=== PATIENT | female | born 1960 | race Caucasian/White ===

== ENCOUNTER 2017-06-27 08:11 | Emergency (ER) | payer BC, OTHER ==
[2017-06-27 08:25] VITALS: BP 131/86
[2017-06-27] MEDS ORDERED: Sodium Chloride 0.9% 10 ML Syringe FLUSH PRN (08:29)
[2017-06-27] MEDS ORDERED: Albuterol/Ipratropium 3.0-0.5 MG/3 ML Neb Soln NEB ONE (09:02)
[2017-06-27 09:04] LABS: CHLORIDE,CL 103 mmol/L (101-111); SODIUM,NA 138 mmol/L (135-145)
--- NOTE | 2017-06-27 09:06 | EDM.PDOC ---
ED HPI GENERAL MEDICAL PROBLEM - General Chief Complaint: Respiratory Problem Stated Complaint: CAN'T BREATH Time Seen by Provider: 06/27/17 09:03 Source of Information: Reports: Patient, RN, RN Notes Reviewed History Limitations: Reports: No Limitations - History of Present Illness INITIAL COMMENTS - FREE TEXT/NARRATIVE: Patient presents to the ER with c/o trouble breathing. She states she began getting sick on Tuesday, went to the clinic on Tuesday. She was told her lungs did not sound good and was placed on medications. She states she has progressively gotten worse. She denies fever or chills, nausea or vomiting. She denies sputum production. She admits to SOB and minimal sternal chest pain. 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 Cardiovascular History: Reports: None Respiratory History: Reports: COPD Gastrointestinal History: Reports: GERD Genitourinary History: Reports: None 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 Musculoskeletal History: Reports: Amputation, Back Pain, Chronic, Osteoarthritis Other Musculoskeletal History: shermans disease Neurological History: Reports: None Psychiatric History: Reports: Other (See Below) Other Psychiatric History: problem sleeping at times due to the pain Endocrine/Metabolic History: Reports: None Hematologic History: Reports: None Immunologic History: Reports: None Oncologic (Cancer) History: Reports: None Dermatologic History: Reports: None - Infectious Disease History Infectious Disease History: Reports: Chicken Pox - Past Surgical History Head Surgeries/Procedures: Reports: None Other Neurological Surgeries/Procedures: shermans disease Social & Family History - Family History Cardiac: Reports: Hypertension Respiratory: Reports: Asthma, COPD Musculoskeletal: Reports: Arthritis Psychiatric: Reports: Anxiety - Tobacco Use Smoking Status *Q: Current Every Day Smoker Years of Tobacco use: 38 Packs/Tins Daily: 1 Used Tobacco, but Quit: No Second Hand Smoke Exposure: Yes - Caffeine Use Caffeine Use: Reports: Coffee, Soda - Recreational Drug Use Recreational Drug Use: No - Living Situation & Occupation Living situation: Reports: , with Family Occupation: Employed ED ROS GENERAL - Review of Systems Review Of Systems: ROS reveals no pertinent complaints other than HPI. ED EXAM, GENERAL - Physical Exam Exam: See Below Exam Limited By: No Limitations General Appearance: Alert, WD/WN Eye Exam: Bilateral Eye: Normal Inspection Ears: Normal External Exam, Normal Canal, Hearing Grossly Normal Nose: Normal Inspection, Normal Mucosa, No Blood Throat/Mouth: Normal Inspection, Normal Lips, Normal Teeth, Normal Gums, Normal Oropharynx (mildly erythematous), Normal Voice, No Airway Compromise Head: Atraumatic, Normocephalic Neck: Normal Inspection, Supple, Non-Tender, Full Range of Motion Respiratory/Chest: Respiratory Distress, Crackles, Rhonchi, Wheezing Cardiovascular: Normal Peripheral Pulses, Regular Rate, Rhythm, No Edema, No Gallop, No JVD, No Murmur, No Rub Peripheral Pulses: 2+: Radial (L), Radial (R) GI/Abdominal: Normal Bowel Sounds, Soft, Non-Tender (Female) Exam: Deferred Rectal (Female) Exam: Deferred Back Exam: Normal Inspection, Full Range of Motion Extremities: Normal Inspection, Normal Range of Motion, Non-Tender, No Pedal Edema, Normal Capillary Refill Neurological: Alert, Oriented, Normal Cognition, Normal Gait, No Motor/Sensory Deficits Psychiatric: Normal Affect, Normal Mood Skin Exam: Warm, Dry, Intact, Normal Color, No Rash Lymphatic: No Adenopathy Course - Vital Signs Last Recorded V/S: Last Vital Signs Temp 97.4 F 06/27/17 08:23 Pulse 78 06/27/17 09:15 Resp 24 H 06/27/17 08:23 BP 131/86 06/27/17 08:23 Pulse Ox 98 06/27/17 08:23 - Orders/Labs/Meds Orders: Active Orders 24 hr Category Date Time Status Peripheral IV Care [RC] . DIRECTED Care 06/27/17 08:30 Active RT Aerosol Therapy [RC] ASDIRECTED Care 06/27/17 09:02 Active Sodium Chloride 0.9% [Saline Flush] Med 06/27/17 08:29 Active 10 ml FLUSH ASDIRECTED PRN Peripheral IV Insertion Adult [OM.PC] Stat Oth 06/27/17 08:30 Ordered Medication Orders Sodium Chloride (Saline Flush) 10 ml FLUSH ASDIRECTED PRN PRN Reason: Keep Vein Open Last Admin: 06/27/17 08:58 Dose: 10 ml Labs: Laboratory Tests 06/27/17 06/27/17 Range/Units 08:19 08:19 WBC 8.8 (5.0-10.0) 10^3/uL RBC 4.67 (4.2-5.4) 10^6/uL Hgb 13.5 (12.0-16.0) g/dL Hct 42.4 (37.0-47.0) % MCV 90.8 (80-100) fL MCH 28.9 (27.0-34.0) pg MCHC 31.8 L (33.0-35.0) g/dL Plt Count 244 (150-450) 10^3/uL Neut % (Auto) 63.0 (42.2-75.2) % Lymph % (Auto) 30.4 (20.5-50.1) % Bledsoe % (Auto) 6.4 (2-8) % Eos % (Auto) 0.2 L (1.0-3.0) % Baso % (Auto) 0.0 (0.0-1.0) % Sodium 138 (135-145) mmol/L Potassium 3.6 (3.6-5.0) mmol/L Chloride 103 (101-111) mmol/L Carbon Dioxide 24.0 (21.0-31.0) mmol/L Anion Gap 14.6 BUN 17 (7-18) mg/dL Creatinine 0.7 (0.6-1.3) mg/dL Est Cr Clr Drug Dosing TNP Estimated GFR (MDRD) > 60 BUN/Creatinine Ratio 24.28 Glucose 171 H (74-105) mg/dL Calcium 9.3 (8.4-10.2) mg/dl Total Bilirubin 0.3 (0.2-1.0) mg/dL AST 27 (10-42) IU/L ALT 12 (10-60) IU/L Alkaline Phosphatase 76 (42-121) IU/L Total Protein 7.6 (6.7-8.2) g/dl Albumin 3.8 (3.2-5.5) g/dl Globulin 3.8 Albumin/Globulin Ratio 1.00 Meds: Medications Generic Name Dose Route Start Last Admin Trade Name Freq PRN Reason Stop Dose Admin Sodium Chloride 10 ml 06/27/17 08:29 06/27/17 08:58 Saline Flush FLUSH 10 ml ASDIRECTED PRN Administration Keep Vein Open Discontinued Medications Generic Name Dose Route Start Last Admin Trade Name Franck PRN Reason Stop Dose Admin Albuterol/Ipratropium 3 ml 06/27/17 09:02 06/27/17 09:14 Duoneb 3.0-0.5 Mg/3 Ml NEB 06/27/17 09:03 3 ml ONETIME ONE Administration Methylprednisolone Sodium Succinate 125 mg 06/27/17 09:27 06/27/17 09:38 Solu-Medrol IM 06/27/17 09:28 Not Given ONETIME ONE Methylprednisolone Sodium Succinate 125 mg 06/27/17 09:34 06/27/17 09:38 Solu-Medrol IVPUSH 06/27/17 09:35 125 mg ONETIME ONE Administration Departure - Departure Time of Disposition: 09:45 Disposition: Home, Self-Care 01 Condition: Fair Clinical Impression: COPD exacerbation - Discharge Information Instructions: Shortness of Breath, [id number], Smoking Cessation, Tips for Success, [id number], Upper Respiratory Infection, Adult, [id number], Chronic Obstructive Pulmonary Disease Exacerbation, [id number] Forms: ED Department Discharge Additional Instructions: Please establish a Primary care provider. Make an appointment to be seen at your clinic this week to have Prednisone tapered down. Continue taking Doxycycline previously prescribed. Continue using Chely inhaler. Stop using the inhaler given to you by a relative. Prednisone 60mg orally once daily for 5 days. It is very important that you take this as directed and do not abruptly stop taking. This again is why it is so important that you make an appointment and establish a primary care provider. Albuterol 0.83% nebulizers every 4 hours until better, then every 4 hours as needed for cough, sob. - My Orders Last 24 Hours: My Active Orders 06/27/17 08:29 Sodium Chloride 0.9% [Saline Flush] 10 ml FLUSH ASDIRECTED PRN 06/27/17 08:30 Peripheral IV Care [RC] . DIRECTED Peripheral IV Insertion Adult [OM.PC] Stat 06/27/17 09:02 RT Aerosol Therapy [RC] ASDIRECTED - Assessment/Plan Last 24 Hours: My Active Orders 06/27/17 08:29 Sodium Chloride 0.9% [Saline Flush] 10 ml FLUSH ASDIRECTED PRN 06/27/17 08:30 Peripheral IV Care [RC] . DIRECTED Peripheral IV Insertion Adult [OM.PC] Stat 06/27/17 09:02 RT Aerosol Therapy [RC] ASDIRECTED
--- NOTE | 2017-06-27 09:18 | CR ---
Clinical history: 57-year-old female cough. Interpretation: Negative exam. Normal cardiac silhouette and bony thorax. No alveolar edema or dependent effusion. No lung mass, hilar lymphadenopathy or focal lobar pneumonia. No atelectasis/collapse. No pneumothorax.
[2017-06-27] MEDS ORDERED: methylPREDNISolone Sodium Succinate 125 MG/2 ML SDV IM ONE (09:27)
[2017-06-27] MEDS ORDERED: methylPREDNISolone Sodium Succinate 125 MG/2 ML SDV IVPUSH ONE (09:34)
== END 2017-06-27 09:58 | disposition home or self-care (01) ==
LOC: DL.ED 08:11
DX: J44.1 Chronic obstructive pulmonary disease with (acute) exacerbation (principal); K21.9 Gastro-esophageal reflux disease without esophagitis; M19.90 Unspecified osteoarthritis, unspecified site; F17.210 Nicotine dependence, cigarettes, uncomplicated; Z88.6 Allergy status to analgesic agent; Z79.899 Other long term (current) drug therapy
CPT/HCPCS: 36415; 71020; 80053; 85025; 94640; 96374; 99285; J2930; J7050

== ENCOUNTER 2018-03-26 20:28 | Emergency (ER) | payer OTHER ==
[2018-03-26 20:40] VITALS: BP 141/93
--- NOTE | 2018-03-26 22:09 | EDM.PDOC ---
ED HPI GENERAL MEDICAL PROBLEM - General Chief Complaint: Upper Extremity Injury/Pain Stated Complaint: BROKE ELBOW? [id number] Time Seen by Provider: 03/26/18 20:50 Source of Information: Reports: Patient, RN, RN Notes Reviewed History Limitations: Reports: No Limitations - History of Present Illness INITIAL COMMENTS - FREE TEXT/NARRATIVE: Pt to ER with c/o right elbow/arm pain. She states she slipped and fell on and landed on the right elbow. She states it "zings" up and down the arm. She states she has been having trouble with this arm and has been seeing chiropractic. Patient presents with the right arm in a sling. 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 Cardiovascular History: Reports: None Respiratory History: Reports: COPD Gastrointestinal History: Reports: GERD Genitourinary History: Reports: None 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 Musculoskeletal History: Reports: Amputation, Back Pain, Chronic, Osteoarthritis Other Musculoskeletal History: shermans disease Neurological History: Reports: None Psychiatric History: Reports: Other (See Below) Other Psychiatric History: problem sleeping at times due to the pain Endocrine/Metabolic History: Reports: None Hematologic History: Reports: None Immunologic History: Reports: None Oncologic (Cancer) History: Reports: None Dermatologic History: Reports: None - Infectious Disease History Infectious Disease History: Reports: Chicken Pox - Past Surgical History Head Surgeries/Procedures: Reports: None Other Neurological Surgeries/Procedures: shermans disease Social & Family History - Family History Cardiac: Reports: Hypertension Respiratory: Reports: Asthma, COPD Musculoskeletal: Reports: Arthritis Psychiatric: Reports: Anxiety - Tobacco Use Smoking Status *Q: Former Smoker Used Tobacco, but Quit: Yes Month/Year Tobacco Last Used: 11/2017 - Caffeine Use Caffeine Use: Reports: Coffee, Soda - Recreational Drug Use Recreational Drug Use: No - Living Situation & Occupation Living situation: Reports: , with Family Occupation: Employed Review of Systems - Review of Systems Review Of Systems: ROS reveals no pertinent complaints other than HPI. ED EXAM, GENERAL - Physical Exam Exam: See Below Exam Limited By: No Limitations General Appearance: Alert, WD/WN, No Apparent Distress Eye Exam: Bilateral Eye: EOMI, Normal Inspection Ears: Normal External Exam, Hearing Grossly Normal Nose: Normal Inspection Throat/Mouth: Normal Inspection, Normal Voice, No Airway Compromise Head: Atraumatic, Normocephalic Neck: Normal Inspection, Supple, Non-Tender, Full Range of Motion Respiratory/Chest: No Respiratory Distress, Lungs Clear, Chest Non-Tender, Decreased Breath Sounds Cardiovascular: Normal Peripheral Pulses, Regular Rate, Rhythm, No Edema, No Gallop, No JVD, No Murmur, No Rub Peripheral Pulses: 2+: Radial (L), Radial (R) GI/Abdominal: Normal Bowel Sounds, Soft, Non-Tender (Female) Exam: Deferred Rectal (Female) Exam: Deferred Back Exam: Normal Inspection, Full Range of Motion Extremities: Arm Pain (right arm/elbow), Limited Range of Motion (right arm) Neurological: Alert, Oriented, Normal Cognition, Normal Gait, No Motor/Sensory Deficits Psychiatric: Normal Affect, Normal Mood Skin Exam: Warm, Dry, Intact, Normal Color, No Rash, Ecchymosis (just proximal to the elbow on the dorsal aspect) Lymphatic: No Adenopathy Course - Vital Signs Last Recorded V/S: Last Vital Signs Temp 98.5 F 03/26/18 20:39 Pulse 103 H 03/26/18 20:39 Resp 16 03/26/18 20:39 BP 141/93 H 03/26/18 20:39 Pulse Ox 95 03/26/18 20:39 - Radiology Interpretation Free Text/Narrative:: Right elbow xray: IMPRESSION: No acute osseous findings. Thank you for allowing us to participate in the care of your patient. Dictated and Authenticated by: Al Muhammad MD 03/26/2018 10:02 PM Central Time ([place] & [place]) See Rad report Departure - Departure Time of Disposition: 22:07 Disposition: Home, Self-Care 01 Condition: Fair Clinical Impression: Left elbow contusion Qualifiers: Encounter type: initial encounter Qualified Code(s): S50.02XA - Contusion of left elbow, initial encounter - Discharge Information Instructions: How to Use a Sling, [id number], Elbow Contusion, [id number] Referrals: PCP,None [Primary Care Provider] - Forms: ED Department Discharge Additional Instructions: May use Tylenol and/or ibuprofen as directed for pain Use sling for comfort Follow up with your primary care facility
== END 2018-03-26 22:18 | disposition home or self-care (01) ==
LOC: DL.ED 20:28
DX: S50.02XA Contusion of left elbow, initial encounter (principal); J44.9 Chronic obstructive pulmonary disease, unspecified; Z88.8 Allergy status to other drugs, medicaments and biological substances; Z79.899 Other long term (current) drug therapy; Z87.891 Personal history of nicotine dependence; W01.0XXA Fall on same level from slipping, tripping and stumbling without subsequent striking against object, initial encounter
CPT/HCPCS: 73080-RT; 99283

== ENCOUNTER → 2019-02-22 | Outpatient (CLI) | payer OTHER ==
[2019-02-22 18:48] LABS: SODIUM,NA 140 mmol/L (135-145)
[2019-02-22 18:49] LABS: ANION GAP 19.5; CHLORIDE,CL 103 mmol/L (101-111)
== END ==
LOC: DL.CT 17:04
PROVIDERS: ATTEND Nurse Practitioner
DX: R06.02 Shortness of breath (principal)
CPT/HCPCS: 36415; 80048; 85379

== ENCOUNTER 2019-02-23 09:40 | Inpatient (IN) | payer OTHER ==
[2019-02-23] MEDS ORDERED: Sodium Chloride 0.9% 10 ML Syringe FLUSH PRN ×2 (09:44→15:55)
[2019-02-23] MEDS ORDERED: Budesonide 0.5 MG/2 ML Neb Susp NEB ONE (09:45)
[2019-02-23] MEDS ORDERED: Albuterol/Ipratropium 3.0-0.5 MG/3 ML Neb Soln NEB ONE (09:45)
[2019-02-23] MEDS ORDERED: methylPREDNISolone Sodium Succinate 125 MG/2 ML SDV IVPUSH ONE (09:45)
--- NOTE | 2019-02-23 09:46 | EDM.PDOC ---
ED HPI GENERAL MEDICAL PROBLEM - General Stated Complaint: UNKNOWN Time Seen by Provider: 02/23/19 09:40 Source of Information: Reports: Patient History Limitations: Reports: No Limitations - History of Present Illness INITIAL COMMENTS - FREE TEXT/NARRATIVE: patient comes emergency department today from the clinic for concerns of continued respiratory distress. The patient over the past week has been struggling with an exacerbation of what sounds to be COPD. She is placed on prednisone inhalers as well as azithromycin. She finished the Zithromax on the fourth of this month. Today she went to the clinic because she is in extreme respiratory distress. She cannot sleep and she is gasping for air. She has tightness in her chest but no overt chest pain. She has been diaphoretic but no fevers. Nauseated but no vomiting. No abdominal pain. No diarrhea. No history of DVTs. She was a smoker in the past but has not for many years. She has had no recent long extensive travel. Her sedentary lifestyle. Recent surgery. HIstory taking is somewhat limited due to the severe nature of her respiratory distress. - Related Data Allergies Allergy/AdvReac Type Severity Reaction Status Date / Time aspirin Allergy Stomach Verified 02/23/19 09:47 Upset Home Meds: Home Meds DULoxetine [Cymbalta] 60 mg PO DAILY 04/19/15 [History] Pantoprazole [Protonix] 40 mg PO DAILY 04/19/15 [History] traZODone 50 mg PO ASDIRECTED PRN 10/03/15 [History] Gabapentin [Neurontin] 1 tab PO DAILY 06/27/17 [History] Albuterol Sulfate [Albuterol Sulfate Hfa] 2 puff INH ASDIRECTED PRN 02/23/19 [ History] Esomeprazole Magnesium 20 mg PO DAILY 02/23/19 [History] Ipratropium/Albuterol Sulfate [Iprat-Albut 0.5-3(2.5) MG/3 ML] 1 ampule INH ASDIRECTED PRN 02/23/19 [History] Past Medical History HEENT History: Reports: Impaired Vision Other HEENT History: wears glasses 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 Cardiovascular History: Reports: None Respiratory History: Reports: COPD Gastrointestinal History: Reports: GERD Genitourinary History: Reports: None 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 Musculoskeletal History: Reports: Amputation, Back Pain, Chronic, Osteoarthritis Other Musculoskeletal History: shermans disease Neurological History: Reports: None Psychiatric History: Reports: Other (See Below) Other Psychiatric History: problem sleeping at times due to the pain Endocrine/Metabolic History: Reports: None Hematologic History: Reports: None Immunologic History: Reports: None Oncologic (Cancer) History: Reports: None Dermatologic History: Reports: None - Infectious Disease History Infectious Disease History: Reports: Chicken Pox - Past Surgical History Head Surgeries/Procedures: Reports: None Other Neurological Surgeries/Procedures: shermans disease Social & Family History - Family History Cardiac: Reports: Hypertension Respiratory: Reports: Asthma, COPD Musculoskeletal: Reports: Arthritis Psychiatric: Reports: Anxiety - Caffeine Use Caffeine Use: Reports: Coffee, Soda - Living Situation & Occupation Living situation: Reports: , with Family Occupation: Employed ED ROS GENERAL - Review of Systems Review Of Systems: ROS reveals no pertinent complaints other than HPI. ED EXAM, GENERAL - Physical Exam Exam: See Below Free Text/Narrative:: moderate to severe respiratory distress. Gasping for air. She is alert and appropriate. She is only able to speak in 1-2 word sentences. She is diaphoretic. She is ambulatory. Exam Limited By: Respiratory Distress General Appearance: Anxious, Moderate Distress Eye Exam: Bilateral Eye: EOMI Ears: Normal External Exam Nose: Normal Inspection, Normal Mucosa, No Blood Throat/Mouth: Normal Inspection, Normal Lips, Normal Oropharynx, No Airway Compromise Head: Atraumatic, Normocephalic Neck: Normal Inspection, Supple, Non-Tender Respiratory/Chest: Chest Non-Tender, Respiratory Distress (as stated above. ), Decreased Breath Sounds, Wheezing, Accessory Muscle Use. No: Stridor, Retractions Cardiovascular: Normal Peripheral Pulses, Regular Rate, Rhythm, Tachycardia Peripheral Pulses: 2+: Radial (L), Radial (R), Posterior Tibial (L), Posterior Tibial (R), Dorsalis Pedis (L), Dorsalis Pedis (R) GI/Abdominal: Normal Bowel Sounds, Soft, Non-Tender Back Exam: Normal Inspection, Full Range of Motion Extremities: Normal Inspection, Normal Range of Motion, Non-Tender Neurological: Alert, Oriented, Normal Cognition, No Motor/Sensory Deficits Psychiatric: Anxious Skin Exam: Warm, Intact, Diaphoretic, Pallor Lymphatic: No Adenopathy EKG INTERPRETATION EKG Date: 02/23/19 Time: 10:05 Rhythm: NSR Rate (Beats/Min): 101 [place]: Normal P-Wave: Present QRS: Normal ST-T: Normal QT: Normal Course - Vital Signs Last Recorded V/S: Last Vital Signs Temp 35.9 C 02/23/19 09:46 Pulse 111 H 02/23/19 10:15 Resp 48 H 02/23/19 09:46 BP Pulse Ox 100 02/23/19 09:46 - Orders/Labs/Meds Orders: Active Orders 24 hr Category Date Time Status EKG 12 Lead [EKG Documentation Completion] [RC] URGENT Care 02/23/19 09:44 Active Peripheral IV Care [RC] . DIRECTED Care 02/23/19 09:45 Active RT Aerosol Therapy [RC] ASDIRECTED Care 02/23/19 09:45 Active RT Aerosol Therapy [RC] ASDIRECTED Care 02/23/19 10:15 Active RT BiPAP/CPAP [RC] ASDIRECTED Care 02/23/19 11:46 Active CULTURE BLOOD [BC] Stat Lab 02/23/19 11:07 Received CULTURE BLOOD [BC] Stat Lab 02/23/19 11:11 Received PROCALCITONIN [REF] Stat Lab 02/23/19 10:13 Received Sodium Chloride 0.9% [Saline Flush] Med 02/23/19 09:44 Active 10 ml FLUSH ASDIRECTED PRN Blood Culture x2 Reflex Set [OM.PC] Stat Oth 02/23/19 10:58 Ordered Peripheral IV Insertion Adult [OM.PC] Stat Oth 02/23/19 09:44 Ordered Medication Orders Sodium Chloride (Saline Flush) 10 ml FLUSH ASDIRECTED PRN PRN Reason: Keep Vein Open Last Admin: 02/23/19 09:42 Dose: 10 ml Labs: Laboratory Tests 02/23/19 02/23/19 02/23/19 Range/Units 10:13 10:13 10:13 WBC 14.3 H (5.0-10.0) 10^3/uL RBC 4.29 (4.2-5.4) 10^6/uL Hgb 12.1 (12.0-16.0) g/dL Hct 37.9 (37.0-47.0) % MCV 88.3 (80-100) fL MCH 28.2 (27.0-34.0) pg MCHC 31.9 L (33.0-35.0) g/dL Plt Count 293 (150-450) 10^3/uL Neut % (Auto) 77.5 H (42.2-75.2) % Lymph % (Auto) 16.9 L (20.5-50.1) % [place] % (Auto) 5.5 (2-8) % Eos % (Auto) 0.0 L (1.0-3.0) % Baso % (Auto) 0.1 (0.0-1.0) % Sodium 138 (135-145) mmol/L Potassium 3.7 (3.6-5.0) mmol/L Chloride 102 (101-111) mmol/L Carbon Dioxide 20.0 L (21.0-31.0) mmol/L Anion Gap 19.7 BUN 14 (7-18) mg/dL Creatinine 0.7 (0.6-1.3) mg/dL Est Cr Clr Drug Dosing 74.72 mL/min Estimated GFR (MDRD) > 60 BUN/Creatinine Ratio 20.00 Glucose 145 H (74-105) mg/dL Lactic Acid 4.4 H (0.5-2.2) mmol/L Calcium 9.0 (8.4-10.2) mg/dl Total Bilirubin 0.8 (0.2-1.0) mg/dL AST 43 H (10-42) IU/L ALT 23 (10-60) IU/L Alkaline Phosphatase 85 (42-121) IU/L Troponin I < 0.02 (0.00-0.02) ng/ml C-Reactive Protein (0.0-1.3) mg/dL Total Protein 7.3 (6.7-8.2) g/dl Albumin 3.9 (3.2-5.5) g/dl Globulin 3.4 Albumin/Globulin Ratio 1.15 /04/06 Range/Units 10:13 WBC (5.0-10.0) 10^3/uL RBC (4.2-5.4) 10^6/uL Hgb (12.0-16.0) g/dL Hct (37.0-47.0) % MCV (80-100) fL MCH (27.0-34.0) pg MCHC (33.0-35.0) g/dL Plt Count (150-450) 10^3/uL Neut % (Auto) (42.2-75.2) % Lymph % (Auto) (20.5-50.1) % [place] % (Auto) (2-8) % Eos % (Auto) (1.0-3.0) % Baso % (Auto) (0.0-1.0) % Sodium (135-145) mmol/L Potassium (3.6-5.0) mmol/L Chloride (101-111) mmol/L Carbon Dioxide (21.0-31.0) mmol/L Anion Gap BUN (7-18) mg/dL Creatinine (0.6-1.3) mg/dL Est Cr Clr Drug Dosing mL/min Estimated GFR (MDRD) BUN/Creatinine Ratio Glucose (74-105) mg/dL Lactic Acid (0.5-2.2) mmol/L Calcium (8.4-10.2) mg/dl Total Bilirubin (0.2-1.0) mg/dL AST (10-42) IU/L ALT (10-60) IU/L Alkaline Phosphatase (42-121) IU/L Troponin I (0.00-0.02) ng/ml C-Reactive Protein 0.6 (0.0-1.3) mg/dL Total Protein (6.7-8.2) g/dl Albumin (3.2-5.5) g/dl Globulin Albumin/Globulin Ratio Meds: Medications Generic Name Dose Route Start Last Admin Trade Name Freq PRN Reason Stop Dose Admin Sodium Chloride 10 ml 02/23/19 09:44 02/23/19 09:42 Saline Flush FLUSH 10 ml ASDIRECTED PRN Administration Keep Vein Open Discontinued Medications Generic Name Dose Route Start Last Admin Trade Name Freq PRN Reason Stop Dose Admin Albuterol 10 mg 02/23/19 10:14 Proventil Neb Soln [facility] 02/23/19 10:15 ONETIME ONE Albuterol/Ipratropium 3 ml 02/23/19 09:45 02/23/19 09:48 Duoneb 3.0-0.5 Mg/3 Ml [facility] 02/23/19 09:46 3 ml ONETIME ONE Administration Budesonide 1 mg 02/23/19 09:45 02/23/19 09:48 Pulmicort [facility] 02/23/19 09:46 1 mg ONETIME ONE Administration Ceftriaxone Sodium Confirm 02/23/19 10:52 02/23/19 11:07 Rocephin Administered 02/23/19 10:53 Not Given Dose 2 gm .ROUTE .STK-MED ONE Magnesium Sulfate/Dextrose 2 200 mls @ 100 mls/hr 02/23/19 09:52 02/23/19 10: 00 gm/ Premix IV 02/23/19 11:51 100 mls/hr ONETIME ONE Administration Azithromycin 500 mg/ Sodium 250 mls @ 250 mls/hr 02/23/19 10:46 02/23/19 11: 42 Chloride IV 02/23/19 11:45 250 mls/hr ONETIME ONE Administration Ceftriaxone Sodium 2 gm/ 100 mls @ 200 mls/hr 02/23/19 10:46 02/23/19 11:11 Sodium Chloride IV 02/23/19 11:15 200 mls/hr ONETIME ONE Administration Lactated Ringer's 1,000 mls @ 1,000 mls/hr 02/23/19 10:58 02/23/19 11:09 Ringers, Lactated IV 02/23/19 11:57 1,000 mls/hr .BOLUS ONE Administration Methylprednisolone Sodium Succinate 125 mg 02/23/19 09:45 02/23/19 09:47 Solu-Medrol IVPUSH 02/23/19 09:46 125 mg ONETIME ONE Administration Montelukast Sodium 10 mg 02/23/19 10:47 02/23/19 11:00 Singulair PO 02/23/19 10:48 10 mg ONETIME ONE Administration Morphine Sulfate 2 mg 02/23/19 10:06 02/23/19 10:24 Morphine IVPUSH 02/23/19 10:07 2 mg ONETIME ONE Administration Morphine Sulfate 2 mg 02/23/19 11:59 Morphine IVPUSH 02/23/19 12:00 ONETIME ONE Morphine Sulfate 4 mg 02/23/19 12:04 02/23/19 12:15 Morphine IVPUSH 02/23/19 12:05 4 mg ONETIME ONE Administration Morphine Sulfate Confirm 02/23/19 12:05 02/23/19 12:24 Morphine Administered 02/23/19 12:06 Not Given Dose 4 mg .ROUTE .STK-MED ONE - Radiology Interpretation Free Text/Narrative:: Per radiology IMPRESSION: No evidence for acute pulmonary disease. - Re-Assessments/Exams Free Text/Narrative Re-Assessment/Exam: 02/23/19 arrival initial managemrted with a DuoNeb nebulizer Budesonide 1 mg Solu-medrol 125mg Still very dyspneic and gasping. Oxygen saturation still high 90s. Continuous nebulizer. Morphine 2mg IVP Magnesium Sulfate 2grams IVPB 02/23/19 10:57 Pt is now resting on the cot. Still tachypneic but must less distress. She is calm. Skin pink warm and dry. Nebulizer still going. Gets very winded with even the lightest physical exertion or talking. Placed on Bipap see RT for titration settings. Morphine 4mg IVP for anxiety and comfort on the bipap. 02/23/19 the patient is tolerating the BiPAP very well. She reports that she feels much less short of breath. She does not feel short of breath at rest. Her tidal volumes are in the 500s respiratory rate in the low 20s. Although when she physically exerts herself she again becomes dyspneic. Her recurrent COPD exacerbation as well as the extreme nature of this upon presentation I spoke with Dr. Perez the hospitalist dynamics ax consultant here in [facility]. HPI ER COURSE findings and concerns were relayed to him. He accepted the patient in transfer as inpatient here for admission. Departure - Departure Time of Disposition: 12:40 Disposition: Admitted As Inpatient 65 Clinical Impression: Chronic obstructive pulmonary disease with acute exacerbation - Discharge Information Critical Care Note - Critical Care Note Total Time (mins): 45 (45 minutes of direct critical care for this severe COPD exaceration at the bedside for continuous monitoring interventions planning and care coordination. ) - My Orders Last 24 Hours: My Active Orders 02/23/19 09:44 EKG 12 Lead [EKG Documentation Completion] [RC] URGENT Sodium Chloride 0.9% [Saline Flush] 10 ml FLUSH ASDIRECTED PRN Peripheral IV Insertion Adult [OM.PC] Stat 02/23/19 09:45 Peripheral IV Care [RC] . DIRECTED RT Aerosol Therapy [RC] ASDIRECTED 02/23/19 10:13 PROCALCITONIN [REF] Stat 02/23/19 10:15 RT Aerosol Therapy [RC] ASDIRECTED 02/23/19 10:58 Blood Culture x2 Reflex Set [OM.PC] Stat 02/23/19 11:07 CULTURE BLOOD [BC] Stat 02/23/19 11:11 CULTURE BLOOD [BC] Stat 02/23/19 11:46 RT BiPAP/CPAP [RC] ASDIRECTED - Assessment/Plan Last 24 Hours: My Active Orders 02/23/19 09:44 EKG 12 Lead [EKG Documentation Completion] [RC] URGENT Sodium Chloride 0.9% [Saline Flush] 10 ml FLUSH ASDIRECTED PRN Peripheral IV Insertion Adult [OM.PC] Stat 02/23/19 09:45 Peripheral IV Care [RC] . DIRECTED RT Aerosol Therapy [RC] ASDIRECTED 02/23/19 10:13 PROCALCITONIN [REF] Stat 02/23/19 10:15 RT Aerosol Therapy [RC] ASDIRECTED 02/23/19 10:58 Blood Culture x2 Reflex Set [OM.PC] Stat 02/23/19 11:07 CULTURE BLOOD [BC] Stat 02/23/19 11:11 CULTURE BLOOD [BC] Stat 02/23/19 11:46 RT BiPAP/CPAP [RC] ASDIRECTED Assessment:: Severe COPD exacerbation Bipap ventilation Plan: Admit Dr. Perez were in [place] for inpatient.
[2019-02-23] MEDS ORDERED: Magnesium Sulfate/D5W 2 GM in Premix Bag 1 BAG IV ONE (09:52)
[2019-02-23] MEDS ORDERED: Morphine 2 MG/ML Syringe IVPUSH ONE ×2 (10:06→11:59)
[2019-02-23] MEDS ORDERED: Albuterol 0.083% 2.5 MG/3 ML Neb Soln NEB ONE (10:14)
[2019-02-23 10:39] LABS: ANION GAP 19.7; CHLORIDE,CL 102 mmol/L (101-111); SODIUM,NA 138 mmol/L (135-145)
[2019-02-23] MEDS ORDERED: cefTRIAXone 2 GM in Sodium Chloride 0.9% 100 ML IV ONE (10:46)
[2019-02-23] MEDS ORDERED: Azithromycin 500 MG in Sodium Chloride 0.9% 250 ML IV ONE (10:46)
[2019-02-23] MEDS ORDERED: Montelukast 10 MG Tab PO ONE (10:47)
[2019-02-23] MEDS ORDERED: cefTRIAXone 1 GM Vial ONE (10:52)
[2019-02-23] MEDS ORDERED: Lactated Ringers 1,000 ML IV ONE (10:58)
[2019-02-23] MEDS ORDERED: Morphine 4 MG/ML Syringe IVPUSH ONE (12:04)
[2019-02-23] MEDS ORDERED: Morphine 4 MG/ML Syringe ONE (12:05)
[2019-02-23 14:37] LABS: BASE EXCESS ARTERIAL -1 mmol/L ((-2)-(+3)); BICARBONATE,ARTERIAL 21.9 mmol/L (22-26); O2 DELIVERY DEVICE BIPAP; O2 SATURATION ARTERIAL 99 % (95-100); PCO2 ARTERIAL 32 mmHg (35-45); PO2 ARTERIAL 101 mmHg (70-100)
[2019-02-23 14:38] LABS: ALLEN TEST PERFORMED
[2019-02-23] MEDS ORDERED: Albuterol/Ipratropium 3.0-0.5 MG/3 ML Neb Soln NEB PRN (15:57)
--- NOTE | 2019-02-23 16:06 | PCM.HP ---
H&P History of Present Illness - General Date of Service: 02/23/19 Admit Problem/Dx: Admission Diagnosis/Problem Admission Diagnosis/Problem Chronic obstructive pulmonary disease Source of Information: Patient History Limitations: Reports: No Limitations - History of Present Illness Initial Comments - Free Text/Narative: 58 yo F with pmh of COPD, anxiety/depression, past smoker (quit 15 months ago) who presents with shortness of breath. Shortness of breath has been ongoing for the past four days. Used her inhaler at home without relief Cough, no sputum No fever No chest pain No abd pain, nausea or vomiting No leg swelling In the ED, BiPAP was started. - Related Data Allergies/Adverse Reactions: Allergies Allergy/AdvReac Type Severity Reaction Status Date / Time aspirin Allergy Stomach Verified 02/23/19 14:18 Upset Home Medications: Home Meds DULoxetine [Cymbalta] 60 mg PO DAILY 04/19/15 [History] traZODone 50 mg PO ASDIRECTED PRN 10/03/15 [History] Gabapentin [Neurontin] 100 mg PO DAILY 06/27/17 [History] Albuterol Sulfate [Albuterol Sulfate Hfa] 2 puff INH ASDIRECTED PRN 02/23/19 [ History] Esomeprazole Magnesium 20 mg PO DAILY 02/23/19 [History] Ipratropium/Albuterol Sulfate [Iprat-Albut 0.5-3(2.5) MG/3 ML] 1 ampule INH ASDIRECTED PRN 02/23/19 [History] Past Medical History HEENT History: Reports: Impaired Vision Other HEENT History: wears glasses 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 Cardiovascular History: Reports: None Respiratory History: Reports: COPD Gastrointestinal History: Reports: GERD Genitourinary History: Reports: None 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 Musculoskeletal History: Reports: Amputation, Back Pain, Chronic, Osteoarthritis Other Musculoskeletal History: shermans disease Neurological History: Reports: None Psychiatric History: Reports: Other (See Below) Other Psychiatric History: problem sleeping at times due to the pain Endocrine/Metabolic History: Reports: None Hematologic History: Reports: None Immunologic History: Reports: None Oncologic (Cancer) History: Reports: None Dermatologic History: Reports: None - Infectious Disease History Infectious Disease History: Reports: Chicken Pox - Past Surgical History Head Surgeries/Procedures: Reports: None Other Neurological Surgeries/Procedures: shermans disease Social & Family History - Family History Cardiac: Reports: Hypertension Respiratory: Reports: Asthma, COPD Musculoskeletal: Reports: Arthritis Psychiatric: Reports: Anxiety - Tobacco Use Smoking Status *Q: Former Smoker Used Tobacco, but Quit: Yes Month/Year Tobacco Last Used: 15 months - Caffeine Use Caffeine Use: Reports: Coffee, Soda - Living Situation & Occupation Living situation: Reports: , with Family Occupation: Employed H&P Review of Systems - Review of Systems: Review Of Systems: ROS reveals no pertinent complaints other than HPI. General: Denies: Fever HEENT: Reports: No Symptoms Pulmonary: Reports: Shortness of Breath Cardiovascular: Reports: No Symptoms Gastrointestinal: Reports: No Symptoms Genitourinary: Reports: No Symptoms Musculoskeletal: Reports: No Symptoms Skin: Reports: No Symptoms Neurological: Reports: No Symptoms Exam - Exam Exam: See Below - Vital Signs Vital Signs: Last Vital Signs Temp 36.8 C 02/23/19 13:45 Pulse 108 H 02/23/19 13:45 Resp 42 H 02/23/19 13:45 BP 163/107 H 02/23/19 13:45 Pulse Ox 98 02/23/19 13:45 Weight: 81.647 kg - Exam General: Alert, Oriented HEENT: Conjunctiva Clear Neck: Supple, Trachea Midline Lungs: Other (on BiPAP) Cardiovascular: Regular Rate, Regular Rhythm GI/Abdominal Exam: Normal Bowel Sounds, Soft Extremities: Normal Inspection, Normal Range of Motion - Patient Data Lab Results Last 24 hrs: Laboratory Results - last 24 hr 02/23/19 02/23/19 02/23/19 Range/Units 10:13 10:13 10:13 WBC 14.3 H (5.0-10.0) 10^3/uL RBC 4.29 (4.2-5.4) 10^6/uL Hgb 12.1 (12.0-16.0) g/dL Hct 37.9 (37.0-47.0) % MCV 88.3 (80-100) fL MCH 28.2 (27.0-34.0) pg MCHC 31.9 L (33.0-35.0) g/dL Plt Count 293 (150-450) 10^3/uL Neut % (Auto) 77.5 H (42.2-75.2) % Lymph % (Auto) 16.9 L (20.5-50.1) % [place] % (Auto) 5.5 (2-8) % Eos % (Auto) 0.0 L (1.0-3.0) % Baso % (Auto) 0.1 (0.0-1.0) % ABG pH (7.35-7.45) ABG pCO2 (35-45) mmHg ABG pO2 (70-100) mmHg ABG HCO3 (22-26) mmol/L ABG O2 Saturation (95-100) % ABG Base Excess ((-2)-(+3)) mmol/L Harjinder Test O2 Delivery Device Sodium 138 (135-145) mmol/L Potassium 3.7 (3.6-5.0) mmol/L Chloride 102 (101-111) mmol/L Carbon Dioxide 20.0 L (21.0-31.0) mmol/L Anion Gap 19.7 BUN 14 (7-18) mg/dL Creatinine 0.7 (0.6-1.3) mg/dL Est Cr Clr Drug Dosing 74.72 mL/min Estimated GFR (MDRD) > 60 BUN/Creatinine Ratio 20.00 Glucose 145 H (74-105) mg/dL Lactic Acid 4.4 H (0.5-2.2) mmol/L Calcium 9.0 (8.4-10.2) mg/dl Total Bilirubin 0.8 (0.2-1.0) mg/dL AST 43 H (10-42) IU/L ALT 23 (10-60) IU/L Alkaline Phosphatase 85 (42-121) IU/L Troponin I < 0.02 (0.00-0.02) ng/ml C-Reactive Protein (0.0-1.3) mg/dL Total Protein 7.3 (6.7-8.2) g/dl Albumin 3.9 (3.2-5.5) g/dl Globulin 3.4 Albumin/Globulin Ratio 1.15 02/23/19 02/23/19 Range/Units 10:13 14:31 WBC (5.0-10.0) 10^3/uL RBC (4.2-5.4) 10^6/uL Hgb (12.0-16.0) g/dL Hct (37.0-47.0) % MCV (80-100) fL MCH (27.0-34.0) pg MCHC (33.0-35.0) g/dL Plt Count (150-450) 10^3/uL Neut % (Auto) (42.2-75.2) % Lymph % (Auto) (20.5-50.1) % [place] % (Auto) (2-8) % Eos % (Auto) (1.0-3.0) % Baso % (Auto) (0.0-1.0) % ABG pH 7.45 (7.35-7.45) ABG pCO2 32 L (35-45) mmHg ABG pO2 101 H (70-100) mmHg ABG HCO3 21.9 L (22-26) mmol/L ABG O2 Saturation 99 (95-100) % ABG Base Excess -1 ((-2)-(+3)) mmol/L Harjinder Test Performed O2 Delivery Device Bipap Sodium (135-145) mmol/L Potassium (3.6-5.0) mmol/L Chloride (101-111) mmol/L Carbon Dioxide (21.0-31.0) mmol/L Anion Gap BUN (7-18) mg/dL Creatinine (0.6-1.3) mg/dL Est Cr Clr Drug Dosing mL/min Estimated GFR (MDRD) BUN/Creatinine Ratio Glucose (74-105) mg/dL Lactic Acid (0.5-2.2) mmol/L Calcium (8.4-10.2) mg/dl Total Bilirubin (0.2-1.0) mg/dL AST (10-42) IU/L ALT (10-60) IU/L Alkaline Phosphatase (42-121) IU/L Troponin I (0.00-0.02) ng/ml C-Reactive Protein 0.6 (0.0-1.3) mg/dL Total Protein (6.7-8.2) g/dl Albumin (3.2-5.5) g/dl Globulin Albumin/Globulin Ratio Result Diagrams: 02/23/19 10:13 02/23/19 10:13 Problem List Initiated/Reviewed/Updated: Yes Orders Last 24hrs: Active Orders 24 hr Category Date Time Status Patient Status [ADT] Routine ADT 02/23/19 15:55 Ordered Ambulate [RC] ASDIRECTED Care 02/23/19 15:55 Ordered EKG 12 Lead [EKG Documentation Completion] [RC] URGENT Care 02/23/19 09:44 Active Height and Weight [RC] DAILY Care 02/23/19 15:55 Ordered Oxygen Therapy [RC] PRN Care 02/23/19 15:55 Ordered Peripheral IV Care [RC] . DIRECTED Care 02/23/19 15:55 Ordered Peripheral IV Care [RC] 08,20 Care 02/23/19 09:45 Active RT Aerosol Therapy [RC] ASDIRECTED Care 02/23/19 09:45 Active RT Aerosol Therapy [RC] ASDIRECTED Care 02/23/19 10:15 Active RT Aerosol Therapy [RC] ASDIRECTED Care 02/23/19 15:58 Ordered RT BiPAP/CPAP [RC] ASDIRECTED Care 02/23/19 11:46 Active RT Post Treatment Assessment [RC] Click to Edit Care 02/23/19 15:59 Ordered RT Pre-Treatment Assessment [RC] Click to Edit Care 02/23/19 15:59 Ordered Up With Assistance [RC] ASDIRECTED Care 02/23/19 15:55 Ordered VTE/DVT Education [RC] PER UNIT ROUTINE Care 02/23/19 15:55 Ordered Vital Signs [RC] Q4H Care 02/23/19 15:55 Ordered Regular Diet [DIET] Diet 02/23/19 Breakfast Ordered BASIC METABOLIC PANEL,BMP [CHEM] AM Lab 02/24/19 05:11 Ordered CBC W/O DIFF,HEMOGRAM [HEME] AM Lab 02/24/19 05:11 Ordered CULTURE BLOOD [BC] Stat Lab 02/23/19 11:07 Received CULTURE BLOOD [BC] Stat Lab 02/23/19 11:11 Received PROCALCITONIN [REF] Stat Lab 02/23/19 10:13 Received Albuterol/Ipratropium [DuoNeb 3.0-0.5 MG/3 ML] Med 02/23/19 15:57 Ordered 3 ml NEB Q2H PRN Albuterol/Ipratropium [DuoNeb 3.0-0.5 MG/3 ML] Med 02/23/19 19:00 Ordered 3 ml NEB Q4HRRT DULoxetine [Cymbalta] Med 02/24/19 09:00 Ordered 60 mg PO DAILY Esomeprazole Magnesium [Esomeprazole Magnesium] Med 02/24/19 09:00 Ordered 20 mg PO DAILY Gabapentin [Neurontin] Med 02/24/19 09:00 Ordered 100 mg PO DAILY Mometasone/Formoterol [Dulera 200-5 MCG] Med 02/23/19 18:00 Ordered 2 puff IH BIDRT Sodium Chloride 0.9% [Saline Flush] Med 02/23/19 09:44 Active 10 ml FLUSH ASDIRECTED PRN Sodium Chloride 0.9% [Saline Flush] Med 02/23/19 15:55 Ordered 10 ml FLUSH ASDIRECTED PRN Tiotropium [Spiriva HandiHaler] Med 02/24/19 09:00 Ordered 18 mcg INH DAILY predniSONE Med 02/23/19 16:00 Ordered 50 mg PO DAILY traZODone Med 02/23/19 15:58 Ordered 50 mg PO ASDIRECTED PRN Blood Culture x2 Reflex Set [OM.PC] Stat Oth 02/23/19 10:58 Ordered Peripheral IV Insertion Adult [OM.PC] Routine Oth 02/23/19 15:55 Ordered Peripheral IV Insertion Adult [OM.PC] Stat Oth 02/23/19 09:44 Ordered Saline Lock Insert [OM.PC] Routine Oth 02/23/19 15:55 Ordered Medication Orders Sodium Chloride (Saline Flush) 10 ml FLUSH ASDIRECTED PRN PRN Reason: Keep Vein Open Last Admin: 02/23/19 09:42 Dose: 10 ml Assessment/Plan Comment:: COPD exacerbation -check ABG, PCo2 32 -can stop BiPAP -start COPD Protocol: duonebs atc and prn, ICS/LABA (dulera), spiriva, short course steroid with oral prednisone -monitor vitals Depression/Anxiety -continue home meds DVT ppx -sc lovenox
[2019-02-23] MEDS: Albuterol/Ipratropium 3.0-0.5 MG/3 ML Neb Soln NEB SCH ×3 (16:25→23:59)
[2019-02-23] MEDS: Enoxaparin 40 MG/0.4 ML Syringe SUBCUT SCH (16:38)
[2019-02-23] MEDS: predniSONE 20 MG Tab PO SCH (17:06)
[2019-02-23] MEDS: Formoterol/Mometasone 200-5 MCG 8.8 GM Inhaler IH SCH (18:29)
[2019-02-23] MEDS: ESOMEPRAZOLE 20 MG PO SCH (19:53)
[2019-02-23] MEDS ORDERED: Aluminum Hydroxide/Magnesium Hydroxide/Simethicone Susp 30 ML Cup PO ONE (20:41)
[2019-02-23] MEDS ORDERED: Aluminum Hydroxide/Magnesium Hydroxide/Simethicone Susp 30 ML Cup PO PRN (20:41)
[2019-02-23] MEDS: traZODone 50 MG Tab PO PRN (21:16)
[2019-02-23] MEDS: Gabapentin 100 MG Cap PO SCH (21:16)
[2019-02-24] MEDS: Albuterol/Ipratropium 3.0-0.5 MG/3 ML Neb Soln NEB SCH ×6 (03:15→23:16)
[2019-02-24] MEDS: ESOMEPRAZOLE 20 MG PO SCH (05:41)
[2019-02-24 07:58] LABS: CHLORIDE,CL 102 mmol/L (101-111); SODIUM,NA 137 mmol/L (135-145)
[2019-02-24] MEDS: Enoxaparin 40 MG/0.4 ML Syringe SUBCUT SCH (08:12)
[2019-02-24] MEDS: predniSONE 20 MG Tab PO SCH (08:12)
[2019-02-24] MEDS: Formoterol/Mometasone 200-5 MCG 8.8 GM Inhaler IH SCH ×2 (08:13→18:31)
[2019-02-24] MEDS: DULOXETINE 60 MG PO SCH (08:14)
[2019-02-24] MEDS: Tiotropium Inhaler 18 MCG Inhalation Powder Cap Kit of 5 INH SCH (09:00)
[2019-02-24] MEDS ORDERED: LORazepam 0.5 MG Tab PO ONE (12:14)
--- NOTE | 2019-02-24 13:08 | PCM.PN ---
- General Info Date of Service: 02/24/19 Admission Dx/Problem (Free Text): Admission Diagnosis/Problem Admission Diagnosis/Problem Chronic obstructive pulmonary disease exacerbation Subjective Update: I saw and examined the patient at the bedside this morning Shortness of breath is improved this morning. Patient has been weaned of oxygen and is on room air No chest pain, afebrile overnight - Review of Systems General: Reports: No Symptoms HEENT: Reports: No Symptoms Pulmonary: Reports: Shortness of Breath Cardiovascular: Reports: No Symptoms Gastrointestinal: Reports: No Symptoms Genitourinary: Reports: No Symptoms Musculoskeletal: Reports: No Symptoms Skin: Reports: No Symptoms - Patient Data Vitals - Most Recent: Last Vital Signs Temp 36.7 C 02/24/19 08:33 Pulse 88 02/24/19 11:00 Resp 20 02/24/19 08:33 BP 144/96 H 02/24/19 08:33 Pulse Ox 97 02/24/19 11:00 Weight - Most Recent: 85.185 kg I&O - Last 24 Hours: Intake & Output 02/23/19 02/24/19 02/24/19 22:59 06:59 14:59 Intake Total 520 Output Total 650 300 Balance -650 220 Lab Results Last 24 Hours: Laboratory Results - last 24 hr 02/23/19 02/23/19 02/24/19 Range/Units 10:13 14:31 06:15 WBC 11.8 H (5.0-10.0) 10^3/uL RBC 4.00 L (4.2-5.4) 10^6/uL Hgb 11.3 L (12.0-16.0) g/dL Hct 35.7 L (37.0-47.0) % MCV 89.3 (80-100) fL MCH 28.3 (27.0-34.0) pg MCHC 31.7 L (33.0-35.0) g/dL Plt Count 282 (150-450) 10^3/uL ABG pH 7.45 (7.35-7.45) ABG pCO2 32 L (35-45) mmHg ABG pO2 101 H (70-100) mmHg ABG HCO3 21.9 L (22-26) mmol/L ABG O2 Saturation 99 (95-100) % ABG Base Excess -1 ((-2)-(+3)) mmol/L Harjinder Test Performed O2 Delivery Device Bipap Sodium (135-145) mmol/L Potassium (3.6-5.0) mmol/L Chloride (101-111) mmol/L Carbon Dioxide (21.0-31.0) mmol/L Anion Gap BUN (7-18) mg/dL Creatinine (0.6-1.3) mg/dL Est Cr Clr Drug Dosing mL/min Estimated GFR (MDRD) Glucose (74-105) mg/dL Calcium (8.4-10.2) mg/dl Procalcitonin <0.05 (<0.10) ng/mL 02/24/19 Range/Units 06:15 WBC (5.0-10.0) 10^3/uL RBC (4.2-5.4) 10^6/uL Hgb (12.0-16.0) g/dL Hct (37.0-47.0) % MCV (80-100) fL MCH (27.0-34.0) pg MCHC (33.0-35.0) g/dL Plt Count (150-450) 10^3/uL ABG pH (7.35-7.45) ABG pCO2 (35-45) mmHg ABG pO2 (70-100) mmHg ABG HCO3 (22-26) mmol/L ABG O2 Saturation (95-100) % ABG Base Excess ((-2)-(+3)) mmol/L Harjinder Test O2 Delivery Device Sodium 137 (135-145) mmol/L Potassium 4.0 (3.6-5.0) mmol/L Chloride 102 (101-111) mmol/L Carbon Dioxide 24.0 (21.0-31.0) mmol/L Anion Gap 15.0 BUN 13 (7-18) mg/dL Creatinine 0.6 (0.6-1.3) mg/dL Est Cr Clr Drug Dosing 87.18 mL/min Estimated GFR (MDRD) > 60 Glucose 106 H (74-105) mg/dL Calcium 8.5 (8.4-10.2) mg/dl Procalcitonin (<0.10) ng/mL Bakari Results Last 24 Hours: Microbiology 02/23/19 11:11 Aerobic Blood Culture - Preliminary Blood - Venous - Lab Draw NO GROWTH AFTER 1 DAY Anaerobic Blood Culture - Preliminary NO GROWTH AFTER 1 DAY 02/23/19 11:07 Aerobic Blood Culture - Preliminary Blood - Venous NO GROWTH AFTER 1 DAY Anaerobic Blood Culture - Preliminary NO GROWTH AFTER 1 DAY Med Orders - Current: Current Medications Al Hydroxide/Mg Hydroxide (Mag-Al Plus) 30 ml PO Q8H PRN PRN Reason: Heartburn Albuterol/Ipratropium (Duoneb 3.0-0.5 Mg/3 Ml) 3 ml NEB Q4HRRT [facility] Last Admin: 02/24/19 10:59 Dose: 3 ml Albuterol/Ipratropium (Duoneb 3.0-0.5 Mg/3 Ml) 3 ml NEB Q2H PRN PRN Reason: Shortness of Breath Enoxaparin Sodium (Lovenox) 40 mg SUBCUT DAILY [facility] Last Admin: 02/24/19 08:12 Dose: 40 mg Gabapentin (Neurontin) 100 mg PO BEDTIME [facility] Last Admin: 02/23/19 21:16 Dose: 100 mg Guaifenesin/Phenylephrine HCl (Robitussin Dm) 10 ml PO Q6H PRN PRN Reason: Cough Mometasone Furoate/Formoterol Fumar (Dulera 200-5 Mcg) 2 puff IH BIDRT [facility] Last Admin: 02/24/19 08:13 Dose: 2 puff Esomeprazole 20 Mg * (*Own Med) 0 each PO ACBRK [facility] Last Admin: 02/24/19 05:41 Dose: 1 each Duloxetine 60 Mg Cap (Pt's Own Med) 0 each PO DAILY [facility] Last Admin: 02/24/19 08:14 Dose: 1 each Prednisone (Prednisone) 50 mg PO DAILY@0800 [facility] Last Admin: 02/24/19 08:12 Dose: 50 mg Sodium Chloride (Saline Flush) 10 ml FLUSH ASDIRECTED PRN PRN Reason: Keep Vein Open Last Admin: 02/23/19 09:42 Dose: 10 ml Sodium Chloride (Saline Flush) 10 ml FLUSH ASDIRECTED PRN PRN Reason: Keep Vein Open Tiotropium [place] (Spiriva Handihaler) 18 mcg INH DAILY [facility] Last Admin: 02/24/19 09:00 Dose: 18 mcg Trazodone HCl (Trazodone) 50 mg PO BEDTIME PRN PRN Reason: Sleep Last Admin: 02/23/19 21:16 Dose: 50 mg Discontinued Medications Al Hydroxide/Mg Hydroxide (Mag-Al Plus) 30 ml PO ONETIME ONE Stop: 02/23/19 20:42 Last Admin: 02/23/19 21:15 Dose: 1 dose Albuterol (Proventil Neb Soln) 10 mg NEB ONETIME ONE Stop: 02/23/19 10:15 Last Admin: 02/23/19 16:36 Dose: 10 mg Albuterol/Ipratropium (Duoneb 3.0-0.5 Mg/3 Ml) 3 ml NEB ONETIME ONE Stop: 02/23/19 09:46 Last Admin: 02/23/19 09:48 Dose: 3 ml Budesonide (Pulmicort) 1 mg NEB ONETIME ONE Stop: 02/23/19 09:46 Last Admin: 02/23/19 09:48 Dose: 1 mg Ceftriaxone Sodium (Rocephin) Confirm Administered Dose 2 gm .ROUTE .STK-MED ONE Stop: 02/23/19 10:53 Last Admin: 02/23/19 11:07 Dose: Not Given Magnesium Sulfate/Dextrose 2 (gm/ Premix) 200 mls @ 100 mls/hr IV ONETIME ONE Stop: 02/23/19 11:51 Last Admin: 02/23/19 10:00 Dose: 100 mls/hr Azithromycin 500 mg/ Sodium (Chloride) 250 mls @ 250 mls/hr IV ONETIME ONE Stop: 02/23/19 11:45 Last Admin: 02/23/19 11:42 Dose: 250 mls/hr Ceftriaxone Sodium 2 gm/ (Sodium Chloride) 100 mls @ 200 mls/hr IV ONETIME ONE Stop: 02/23/19 11:15 Last Admin: 02/23/19 11:11 Dose: 200 mls/hr Lactated Ringer's (Ringers, Lactated) 1,000 mls @ 1,000 mls/hr IV .BOLUS ONE Stop: 02/23/19 11:57 Last Admin: 02/23/19 11:09 Dose: 1,000 mls/hr Lorazepam (Ativan) 0.5 mg PO ONETIME ONE Stop: 02/24/19 12:15 Methylprednisolone Sodium Succinate (Solu-Medrol) 125 mg IVPUSH ONETIME ONE Stop: 02/23/19 09:46 Last Admin: 02/23/19 09:47 Dose: 125 mg Montelukast Sodium (Singulair) 10 mg PO ONETIME ONE Stop: 02/23/19 10:48 Last Admin: 02/23/19 11:00 Dose: 10 mg Morphine Sulfate (Morphine) 2 mg IVPUSH ONETIME ONE Stop: 02/23/19 10:07 Last Admin: 02/23/19 10:24 Dose: 2 mg Morphine Sulfate (Morphine) 2 mg IVPUSH ONETIME ONE Stop: 02/23/19 12:00 Last Admin: 02/23/19 13:26 Dose: Not Given Morphine Sulfate (Morphine) 4 mg IVPUSH ONETIME ONE Stop: 02/23/19 12:05 Last Admin: 02/23/19 12:15 Dose: 4 mg Morphine Sulfate (Morphine) Confirm Administered Dose 4 mg .ROUTE .STK-MED ONE Stop: 02/23/19 12:06 Last Admin: 02/23/19 12:24 Dose: Not Given - Exam General: Alert, Oriented HEENT: Pupils Equal Neck: Supple Lungs: Clear to Auscultation Cardiovascular: Regular Rate, Regular Rhythm GI/Abdominal Exam: Normal Bowel Sounds, Soft, Non-Tender Skin: Warm, Dry, Intact - Problem List Review Problem List Initiated/Reviewed/Updated: Yes - My Orders Last 24 Hours: My Active Orders 02/23/19 15:55 Patient Status [ADT] Routine Ambulate [RC] ASDIRECTED Height and Weight [RC] 0600 Oxygen Therapy [RC] PRN Peripheral IV Care [RC] 09,21 Up With Assistance [RC] ASDIRECTED VTE/DVT Education [RC] PER UNIT ROUTINE Vital Signs [RC] Q4H Sodium Chloride 0.9% [Saline Flush] 10 ml FLUSH ASDIRECTED PRN Peripheral IV Insertion Adult [OM.PC] Routine Saline Lock Insert [OM.PC] Routine 02/23/19 15:57 Albuterol/Ipratropium [DuoNeb 3.0-0.5 MG/3 ML] 3 ml NEB Q2H PRN 02/23/19 15:58 RT Aerosol Therapy [RC] ASDIRECTED traZODone 50 mg PO BEDTIME PRN 02/23/19 16:00 predniSONE 50 mg PO DAILY@0800 02/23/19 16:15 Albuterol/Ipratropium [DuoNeb 3.0-0.5 MG/3 ML] 3 ml NEB Q4HRRT Enoxaparin [Lovenox] 40 mg SUBCUT DAILY 02/23/19 18:00 Mometasone/Formoterol [Dulera 200-5 MCG] 2 puff IH BIDRT 02/23/19 19:00 Non-Formulary Medication [NF Drug] 0 each PO ACBRK 02/23/19 20:41 Alum Hydrox/Mag Hydrox/Simeth [Mag-Al Plus] 30 ml PO Q8H PRN 02/23/19 21:00 Gabapentin [Neurontin] 100 mg PO BEDTIME 02/24/19 09:00 Patient's Own Medication [Ptom] 0 each PO DAILY Tiotropium [Spiriva HandiHaler] 18 mcg INH DAILY 02/24/19 09:09 Code Status [Resuscitation Status] Routine 02/24/19 10:28 Dextromethorphan/guaiFENesin [Robitussin DM] 10 ml PO Q6H PRN - Plan Plan:: COPD exacerbation -continue COPD Protocol: zayra atc and prn, ICS/LABA (dulera), spiriva, short course steroid with oral prednisone -patient 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 I encouraged her to keep the appointment. She will need PFTs. -We'll plan to discharge tomorrow on short course steroids and ICS/LABA Depression/Anxiety -continue home meds DVT ppx -sc lovenox
[2019-02-24] MEDS: guaiFENesin/Dextromethorphan 100-10 MG/5 ML Soln 5 ML Cup PO PRN (13:25)
[2019-02-24] MEDS: traZODone 50 MG Tab PO PRN (20:36)
[2019-02-24] MEDS: Gabapentin 100 MG Cap PO SCH (20:36)
[2019-02-25] MEDS: Albuterol/Ipratropium 3.0-0.5 MG/3 ML Neb Soln NEB SCH ×6 (03:13→23:47)
[2019-02-25] MEDS: ESOMEPRAZOLE 20 MG PO SCH (06:01)
[2019-02-25] MEDS: Formoterol/Mometasone 200-5 MCG 8.8 GM Inhaler IH SCH ×2 (08:41→18:24)
[2019-02-25] MEDS: Enoxaparin 40 MG/0.4 ML Syringe SUBCUT SCH (08:42)
[2019-02-25] MEDS: predniSONE 20 MG Tab PO SCH (08:42)
[2019-02-25] MEDS: DULOXETINE 60 MG PO SCH (08:42)
[2019-02-25] MEDS: Tiotropium Inhaler 18 MCG Inhalation Powder Cap Kit of 5 INH SCH (08:43)
[2019-02-25] MEDS: guaiFENesin/Dextromethorphan 100-10 MG/5 ML Soln 5 ML Cup PO PRN (08:43)
[2019-02-25] MEDS ORDERED: LORazepam 0.5 MG Tab PO ONE (11:16)
--- NOTE | 2019-02-25 11:55 | PCM.PN ---
- General Info Date of Service: 02/25/19 Admission Dx/Problem (Free Text): Admission Diagnosis/Problem Admission Diagnosis/Problem Chronic obstructive pulmonary disease exacerbation Subjective Update: I saw and examined the patient at the bedside this morning Still has significant cough this morning, but SOB is improved. Down to room air in oxygen req No chest pain, afebrile overnight - Review of Systems General: Reports: No Symptoms HEENT: Reports: No Symptoms Pulmonary: Reports: Shortness of Breath, Cough Cardiovascular: Reports: No Symptoms Gastrointestinal: Reports: No Symptoms Genitourinary: Reports: No Symptoms Musculoskeletal: Reports: No Symptoms Skin: Reports: No Symptoms - Patient Data Vitals - Most Recent: Last Vital Signs Temp 36.7 C 02/25/19 08:07 Pulse 88 02/25/19 08:07 Resp 32 H 02/25/19 08:07 BP 153/94 H 02/25/19 08:07 Pulse Ox 95 02/25/19 08:07 Weight - Most Recent: 86.364 kg I&O - Last 24 Hours: Intake & Output 02/24/19 02/25/19 02/25/19 22:59 06:59 14:59 Intake Total 350 Output Total 375 Balance -25 Bakari Results Last 24 Hours: Microbiology 02/23/19 11:11 Aerobic Blood Culture - Preliminary Blood - Venous - Lab Draw NO GROWTH AFTER 2 DAYS Anaerobic Blood Culture - Preliminary NO GROWTH AFTER 2 DAYS 02/23/19 11:07 Aerobic Blood Culture - Preliminary Blood - Venous NO GROWTH AFTER 2 DAYS Anaerobic Blood Culture - Preliminary NO GROWTH AFTER 2 DAYS Med Orders - Current: Current Medications Al Hydroxide/Mg Hydroxide (Mag-Al Plus) 30 ml PO Q8H PRN PRN Reason: Heartburn Albuterol/Ipratropium (Duoneb 3.0-0.5 Mg/3 Ml) 3 ml NEB Q4HRRT [facility] Last Admin: 02/25/19 10:00 Dose: 3 ml Albuterol/Ipratropium (Duoneb 3.0-0.5 Mg/3 Ml) 3 ml NEB Q2H PRN PRN Reason: Shortness of Breath Enoxaparin Sodium (Lovenox) 40 mg SUBCUT DAILY [facility] Last Admin: 02/25/19 08:42 Dose: 40 mg Gabapentin (Neurontin) 100 mg PO BEDTIME [facility] Last Admin: 06/08/19 20:36 Dose: 100 mg Guaifenesin/Phenylephrine HCl (Robitussin Dm) 10 ml PO Q6H PRN PRN Reason: Cough Last Admin: 02/25/19 08:43 Dose: 10 ml Mometasone Furoate/Formoterol Fumar (Dulera 200-5 Mcg) 2 puff IH BIDRT [facility] Last Admin: 02/25/19 08:41 Dose: 2 puff Esomeprazole 20 Mg * (*Own Med) 0 each PO ACBRK [facility] Last Admin: 02/25/19 06:01 Dose: 1 each Duloxetine 60 Mg Cap (Pt's Own Med) 0 each PO DAILY [facility] Last Admin: 02/25/19 08:42 Dose: 1 each Prednisone (Prednisone) 50 mg PO DAILY@0800 [facility] Last Admin: 02/25/19 08:42 Dose: 50 mg Sodium Chloride (Saline Flush) 10 ml FLUSH ASDIRECTED PRN PRN Reason: Keep Vein Open Last Admin: 02/23/19 09:42 Dose: 10 ml Sodium Chloride (Saline Flush) 10 ml FLUSH ASDIRECTED PRN PRN Reason: Keep Vein Open Tiotropium [place] (Spiriva Handihaler) 18 mcg INH DAILY [facility] Last Admin: 02/25/19 08:43 Dose: 18 mcg Trazodone HCl (Trazodone) 50 mg PO BEDTIME PRN PRN Reason: Sleep Last Admin: 02/24/19 20:36 Dose: 50 mg Discontinued Medications Al Hydroxide/Mg Hydroxide (Mag-Al Plus) 30 ml PO ONETIME ONE Stop: 02/23/19 20:42 Last Admin: 02/23/19 21:15 Dose: 1 dose Albuterol (Proventil Neb Soln) 10 mg NEB ONETIME ONE Stop: 02/23/19 10:15 Last Admin: 02/23/19 16:36 Dose: 10 mg Albuterol/Ipratropium (Duoneb 3.0-0.5 Mg/3 Ml) 3 ml NEB ONETIME ONE Stop: 02/23/19 09:46 Last Admin: 02/23/19 09:48 Dose: 3 ml Budesonide (Pulmicort) 1 mg NEB ONETIME ONE Stop: 02/23/19 09:46 Last Admin: 02/23/19 09:48 Dose: 1 mg Ceftriaxone Sodium (Rocephin) Confirm Administered Dose 2 gm .ROUTE .STK-MED ONE Stop: 02/23/19 10:53 Last Admin: 02/23/19 11:07 Dose: Not Given Magnesium Sulfate/Dextrose 2 (gm/ Premix) 200 mls @ 100 mls/hr IV ONETIME ONE Stop: 02/23/19 11:51 Last Admin: 02/23/19 10:00 Dose: 100 mls/hr Azithromycin 500 mg/ Sodium (Chloride) 250 mls @ 250 mls/hr IV ONETIME ONE Stop: 02/23/19 11:45 Last Admin: 02/23/19 11:42 Dose: 250 mls/hr Ceftriaxone Sodium 2 gm/ (Sodium Chloride) 100 mls @ 200 mls/hr IV ONETIME ONE Stop: 02/23/19 11:15 Last Admin: 02/23/19 11:11 Dose: 200 mls/hr Lactated Ringer's (Ringers, Lactated) 1,000 mls @ 1,000 mls/hr IV .BOLUS ONE Stop: 02/23/19 11:57 Last Admin: 02/23/19 11:09 Dose: 1,000 mls/hr Lorazepam (Ativan) 0.5 mg PO ONETIME ONE Stop: 02/24/19 12:15 Last Admin: 02/24/19 13:20 Dose: 0.5 mg Lorazepam (Ativan) 0.5 mg PO ONETIME ONE Stop: 02/25/19 11:17 Methylprednisolone Sodium Succinate (Solu-Medrol) 125 mg IVPUSH ONETIME ONE Stop: 02/23/19 09:46 Last Admin: 02/23/19 09:47 Dose: 125 mg Montelukast Sodium (Singulair) 10 mg PO ONETIME ONE Stop: 02/23/19 10:48 Last Admin: 02/23/19 11:00 Dose: 10 mg Morphine Sulfate (Morphine) 2 mg IVPUSH ONETIME ONE Stop: 02/23/19 10:07 Last Admin: 02/23/19 10:24 Dose: 2 mg Morphine Sulfate (Morphine) 2 mg IVPUSH ONETIME ONE Stop: 02/23/19 12:00 Last Admin: 02/23/19 13:26 Dose: Not Given Morphine Sulfate (Morphine) 4 mg IVPUSH ONETIME ONE Stop: 02/23/19 12:05 Last Admin: 02/23/19 12:15 Dose: 4 mg Morphine Sulfate (Morphine) Confirm Administered Dose 4 mg .ROUTE .STK-MED ONE Stop: 02/23/19 12:06 Last Admin: 02/23/19 12:24 Dose: Not Given - Exam General: Alert, Oriented HEENT: Pupils Equal, Pupils Reactive Neck: Supple Lungs: Clear to Auscultation Cardiovascular: Regular Rate, Regular Rhythm GI/Abdominal Exam: Normal Bowel Sounds, Soft - Problem List Review Problem List Initiated/Reviewed/Updated: Yes - My Orders Last 24 Hours: My Active Orders 02/25/19 11:17 Flutter Valve Therapy [RT Chest Physiotherapy] [RC] ASDIRECTED RT Incentive Spirometry [RC] Q1HWA - Plan Plan:: COPD exacerbation -continue COPD Protocol: dudeannabs atc and prn, ICS/LABA (dulera), spiriva, short course steroid with oral prednisone -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 I encouraged her to keep the appointment. She will need PFTs. -We'll plan to discharge tomorrow on short course steroids and ICS/LABA Depression/Anxiety -continue home meds DVT ppx -sc lovenox
[2019-02-25] MEDS: Gabapentin 100 MG Cap PO SCH (21:12)
[2019-02-25] MEDS: traZODone 50 MG Tab PO PRN (21:12)
[2019-02-26] MEDS: Albuterol/Ipratropium 3.0-0.5 MG/3 ML Neb Soln NEB SCH ×6 (02:26→23:03)
[2019-02-26] MEDS: ESOMEPRAZOLE 20 MG PO SCH (05:30)
[2019-02-26] MEDS: Formoterol/Mometasone 200-5 MCG 8.8 GM Inhaler IH SCH ×2 (08:42→18:28)
[2019-02-26] MEDS: Enoxaparin 40 MG/0.4 ML Syringe SUBCUT SCH (08:44)
[2019-02-26] MEDS: predniSONE 20 MG Tab PO SCH (08:44)
[2019-02-26] MEDS: DULOXETINE 60 MG PO SCH (08:48)
[2019-02-26] MEDS: Tiotropium Inhaler 18 MCG Inhalation Powder Cap Kit of 5 INH SCH (08:50)
[2019-02-26] MEDS: guaiFENesin/Dextromethorphan 100-10 MG/5 ML Soln 5 ML Cup PO PRN ×2 (10:25→20:40)
--- NOTE | 2019-02-26 11:21 | PCM.PN ---
- General Info Date of Service: 02/26/19 Admission Dx/Problem (Free Text): Admission Diagnosis/Problem Admission Diagnosis/Problem Chronic obstructive pulmonary disease exacerbation Subjective Update: I saw and examined the patient at the bedside this morning Still has significant cough this morning, but SOB is improved. Complains of sore throat No chest pain, afebrile overnight - Review of Systems General: Reports: No Symptoms HEENT: Reports: No Symptoms Pulmonary: Reports: Shortness of Breath, Cough Cardiovascular: Reports: No Symptoms Gastrointestinal: Reports: No Symptoms Genitourinary: Reports: No Symptoms Musculoskeletal: Reports: No Symptoms Skin: Reports: No Symptoms - Patient Data Vitals - Most Recent: Last Vital Signs Temp 36.9 C 02/26/19 08:00 Pulse 93 02/26/19 08:00 Resp 19 02/26/19 08:00 BP 143/84 H 02/26/19 08:00 Pulse Ox 95 02/26/19 08:00 Weight - Most Recent: 87.18 kg I&O - Last 24 Hours: Intake & Output 02/25/19 02/26/19 02/26/19 22:59 06:59 14:59 Intake Total 420 720 Output Total 1000 750 Balance -580 -30 Bakari Results Last 24 Hours: Microbiology 02/23/19 11:11 Aerobic Blood Culture - Preliminary Blood - Venous - Lab Draw NO GROWTH AFTER 3 DAYS Anaerobic Blood Culture - Preliminary NO GROWTH AFTER 3 DAYS 02/23/19 11:07 Aerobic Blood Culture - Preliminary Blood - Venous NO GROWTH AFTER 3 DAYS Anaerobic Blood Culture - Preliminary NO GROWTH AFTER 3 DAYS Med Orders - Current: Current Medications Al Hydroxide/Mg Hydroxide (Mag-Al Plus) 30 ml PO Q8H PRN PRN Reason: Heartburn Albuterol/Ipratropium (Duoneb 3.0-0.5 Mg/3 Ml) 3 ml NEB Q4HRRT [facility] Last Admin: 02/26/19 07:22 Dose: 3 ml Albuterol/Ipratropium (Duoneb 3.0-0.5 Mg/3 Ml) 3 ml NEB Q2H PRN PRN Reason: Shortness of Breath Benzocaine/Menthol (Cepacol Sore Throat) 1 lozenge MUCMEM Q4HWA [facility] Enoxaparin Sodium (Lovenox) 40 mg SUBCUT DAILY [facility] Last Admin: 02/26/19 08:44 Dose: 40 mg Gabapentin (Neurontin) 100 mg PO BEDTIME [facility] Last Admin: 02/25/19 21:12 Dose: 100 mg Guaifenesin/Phenylephrine HCl (Robitussin Dm) 10 ml PO Q6H PRN PRN Reason: Cough Last Admin: 02/26/19 10:25 Dose: 10 ml Mometasone Furoate/Formoterol Fumar (Dulera 200-5 Mcg) 2 puff IH BIDRT [facility] Last Admin: 02/26/19 08:42 Dose: 2 puff Esomeprazole 20 Mg * (*Own Med) 0 each PO ACBRK [facility] Last Admin: 02/26/19 05:30 Dose: 1 each Duloxetine 60 Mg Cap (Pt's Own Med) 0 each PO DAILY [facility] Last Admin: 02/26/19 08:48 Dose: 1 each Prednisone (Prednisone) 50 mg PO DAILY@0800 [facility] Last Admin: 02/26/19 08:44 Dose: 50 mg Sodium Chloride (Saline Flush) 10 ml FLUSH ASDIRECTED PRN PRN Reason: Keep Vein Open Last Admin: 02/23/19 09:42 Dose: 10 ml Sodium Chloride (Saline Flush) 10 ml FLUSH ASDIRECTED PRN PRN Reason: Keep Vein Open Tiotropium [place] (Spiriva Handihaler) 18 mcg INH DAILY [facility] Last Admin: 02/26/19 08:50 Dose: 18 mcg Trazodone HCl (Trazodone) 50 mg PO BEDTIME PRN PRN Reason: Sleep Last Admin: 02/25/19 21:12 Dose: 50 mg Discontinued Medications Al Hydroxide/Mg Hydroxide (Mag-Al Plus) 30 ml PO ONETIME ONE Stop: 02/23/19 20:42 Last Admin: 02/23/19 21:15 Dose: 1 dose Albuterol (Proventil Neb Soln) 10 mg NEB ONETIME ONE Stop: 02/23/19 10:15 Last Admin: 02/23/19 16:36 Dose: 10 mg Albuterol/Ipratropium (Duoneb 3.0-0.5 Mg/3 Ml) 3 ml NEB ONETIME ONE Stop: 02/23/19 09:46 Last Admin: 02/23/19 09:48 Dose: 3 ml Budesonide (Pulmicort) 1 mg NEB ONETIME ONE Stop: 02/23/19 09:46 Last Admin: 02/23/19 09:48 Dose: 1 mg Ceftriaxone Sodium (Rocephin) Confirm Administered Dose 2 gm .ROUTE .STK-MED ONE Stop: 02/23/19 10:53 Last Admin: 02/23/19 11:07 Dose: Not Given Magnesium Sulfate/Dextrose 2 (gm/ Premix) 200 mls @ 100 mls/hr IV ONETIME ONE Stop: 02/23/19 11:51 Last Admin: 02/23/19 10:00 Dose: 100 mls/hr Azithromycin 500 mg/ Sodium (Chloride) 250 mls @ 250 mls/hr IV ONETIME ONE Stop: 02/23/19 11:45 Last Admin: 02/23/19 11:42 Dose: 250 mls/hr Ceftriaxone Sodium 2 gm/ (Sodium Chloride) 100 mls @ 200 mls/hr IV ONETIME ONE Stop: 02/23/19 11:15 Last Admin: 02/23/19 11:11 Dose: 200 mls/hr Lactated Ringer's (Ringers, Lactated) 1,000 mls @ 1,000 mls/hr IV .BOLUS ONE Stop: 02/23/19 11:57 Last Admin: 02/23/19 11:09 Dose: 1,000 mls/hr Lorazepam (Ativan) 0.5 mg PO ONETIME ONE Stop: 02/24/19 12:15 Last Admin: 02/24/19 13:20 Dose: 0.5 mg Lorazepam (Ativan) 0.5 mg PO ONETIME ONE Stop: 02/25/19 11:17 Last Admin: 02/25/19 12:22 Dose: 0.5 mg Methylprednisolone Sodium Succinate (Solu-Medrol) 125 mg IVPUSH ONETIME ONE Stop: 02/23/19 09:46 Last Admin: 02/23/19 09:47 Dose: 125 mg Montelukast Sodium (Singulair) 10 mg PO ONETIME ONE Stop: 02/23/19 10:48 Last Admin: 02/23/19 11:00 Dose: 10 mg Morphine Sulfate (Morphine) 2 mg IVPUSH ONETIME ONE Stop: 02/23/19 10:07 Last Admin: 02/23/19 10:24 Dose: 2 mg Morphine Sulfate (Morphine) 2 mg IVPUSH ONETIME ONE Stop: 02/23/19 12:00 Last Admin: 02/23/19 13:26 Dose: Not Given Morphine Sulfate (Morphine) 4 mg IVPUSH ONETIME ONE Stop: 02/23/19 12:05 Last Admin: 02/23/19 12:15 Dose: 4 mg Morphine Sulfate (Morphine) Confirm Administered Dose 4 mg .ROUTE .STK-MED ONE Stop: 02/23/19 12:06 Last Admin: 02/23/19 12:24 Dose: Not Given - Exam General: Alert, Oriented HEENT: Pupils Equal Neck: Supple Lungs: Wheezing Cardiovascular: Regular Rate, Regular Rhythm GI/Abdominal Exam: Normal Bowel Sounds - Problem List Review Problem List Initiated/Reviewed/Updated: Yes - My Orders Last 24 Hours: My Active Orders 02/25/19 11:17 Flutter Valve Therapy [RT Chest Physiotherapy] [RC] ASDIRECTED RT Incentive Spirometry [RC] Q1HWA 02/26/19 10:56 Patient Status [ADT] Routine 02/26/19 11:00 Benzocaine/Cetylpyrd/Menthol [Cepacol Sore Throat] 1 lozenge MUCMEM Q4HWA - Plan Plan:: COPD exacerbation -still has symptoms. Will continue treatment. -continue COPD Protocol: duonebs atc and prn, ICS/LABA (dulera), spiriva, short course steroid with oral prednisone -patient has an appointment with a business and services instructor on March 06. I encouraged her to keep the appointment. She will need PFTs. -We'll plan to discharge tomorrow on short course steroids and ICS/LABA Depression/Anxiety -continue home meds DVT ppx -sc lovenox
[2019-02-26] MEDS ORDERED: DULoxetine 30 MG Cap PO SCH (11:37)
[2019-02-26] MEDS: Benzocaine/Cetylpyridinium/Menthol Lozenge MUCMEM SCH ×3 (12:19→18:26)
[2019-02-26] MEDS: traZODone 50 MG Tab PO PRN (20:40)
[2019-02-26] MEDS: Gabapentin 100 MG Cap PO SCH (20:40)
[2019-02-27] MEDS: Albuterol/Ipratropium 3.0-0.5 MG/3 ML Neb Soln NEB SCH ×3 (04:31→12:49)
[2019-02-27] MEDS: Benzocaine/Cetylpyridinium/Menthol Lozenge MUCMEM SCH ×2 (06:05→11:13)
[2019-02-27] MEDS: ESOMEPRAZOLE 20 MG PO SCH (06:05)
[2019-02-27] MEDS: Formoterol/Mometasone 200-5 MCG 8.8 GM Inhaler IH SCH (06:05)
[2019-02-27 07:33] VITALS: BP 174/88; PULSE 95
[2019-02-27] MEDS: predniSONE 20 MG Tab PO SCH (08:33)
[2019-02-27] MEDS: Enoxaparin 40 MG/0.4 ML Syringe SUBCUT SCH (08:35)
[2019-02-27] MEDS: Tiotropium Inhaler 18 MCG Inhalation Powder Cap Kit of 5 INH SCH (08:38)
--- NOTE | 2019-02-27 10:11 | PCM.DCSUM1 ---
Discharge Summary - Hospital Course Free Text/Narrative:: 58 yo F with pmh of COPD, anxiety/depression, past smoker (quit 15 months ago) who presents with shortness of breath. Shortness of breath has been ongoing for the past four days. Used her inhaler at home without relief Cough, no sputum. No fever. Procalcitonin was negative In the ED, BiPAP was started. She was weaned off BIPAP to nasal canula and then room air COPD protocol was started with ICS/LABA, duonebs, spiriva. She improved with treatment. She has an appointment with pulmonary clinic on March 06 Follow up with PCP, outpatient PFTs Diagnosis: Stroke: No - Discharge Data Discharge Date: 02/27/19 Discharge Disposition: Home, Self-Care 01 Condition: Good - Patient Instructions Diet: Usual Diet as Tolerated Activity: As Tolerated - Discharge Plan Prescriptions/Med Rec: Mometasone/Formoterol [Dulera 200-5 MCG] 2 puff IH BIDRT #1 inhaler predniSONE 50 mg PO DAILY@0800 5 Days #13 tablet Home Medications: Home Meds DULoxetine [Cymbalta] 60 mg PO DAILY 04/19/15 [History] traZODone 50 mg PO ASDIRECTED PRN 10/03/15 [History] Gabapentin [Neurontin] 100 mg PO DAILY 06/27/17 [History] Albuterol Sulfate [Albuterol Sulfate Hfa] 2 puff INH ASDIRECTED PRN 02/23/19 [ History] Esomeprazole Magnesium 20 mg PO DAILY 02/23/19 [History] Ipratropium/Albuterol Sulfate [Iprat-Albut 0.5-3(2.5) MG/3 ML] 1 ampule INH ASDIRECTED PRN 02/23/19 [History] Mometasone/Formoterol [Dulera 200-5 MCG] 2 puff IH BIDRT #1 inhaler 02/27/19 [Rx ] predniSONE 50 mg PO DAILY@0800 5 Days #13 tablet 02/27/19 [Rx] Oxygen Therapy Mode: Room Air Patient Handouts: Chronic Obstructive Pulmonary Disease Exacerbation, Easy-to- Read, Prednisone tablets Referrals: PCP,None [Primary Care Provider] - 03/02/19 9:00 am () - Discharge Summary/Plan Comment DC Time >30 min.: Yes - General Info Date of Service: 02/27/19 Admission Dx/Problem (Free Text: Admission Diagnosis/Problem Admission Diagnosis/Problem Chronic obstructive pulmonary disease exacerbation Subjective Update: I saw and examined the patient at the bedside this morning cough, SOB and sore throat is remarkably improved No chest pain, afebrile overnight - Review of Systems General: Reports: No Symptoms HEENT: Reports: No Symptoms Pulmonary: Reports: No Symptoms Cardiovascular: Reports: No Symptoms Gastrointestinal: Reports: No Symptoms Genitourinary: Reports: No Symptoms Musculoskeletal: Reports: No Symptoms Skin: Reports: No Symptoms Neurological: Reports: No Symptoms - Patient Data Vitals - Most Recent: Last Vital Signs Temp 35.9 C 02/27/19 07:29 Pulse 95 02/27/19 07:29 Resp 20 02/27/19 07:29 BP 174/88 H 02/27/19 07:29 Pulse Ox 96 02/27/19 07:29 Weight - Most Recent: 83.915 kg I&O - Last 24 hours: Intake & Output 02/26/19 02/27/19 02/27/19 22:59 06:59 14:59 Intake Total 2715 300 Output Total 2000 1350 100 Balance 715 -1050 -100 JU Results - Last 24 hrs: Microbiology 02/23/19 11:11 Aerobic Blood Culture - Preliminary Blood - Venous - Lab Draw NO GROWTH AFTER 3 DAYS Anaerobic Blood Culture - Preliminary NO GROWTH AFTER 3 DAYS 02/23/19 11:07 Aerobic Blood Culture - Preliminary Blood - Venous NO GROWTH AFTER 3 DAYS Anaerobic Blood Culture - Preliminary NO GROWTH AFTER 3 DAYS Med Orders - Current: Current Medications Al Hydroxide/Mg Hydroxide (Mag-Al Plus) 30 ml PO Q8H PRN PRN Reason: Heartburn Albuterol/Ipratropium (Duoneb 3.0-0.5 Mg/3 Ml) 3 ml NEB Q4HRRT [facility] Last Admin: 02/27/19 07:29 Dose: 3 ml Albuterol/Ipratropium (Duoneb 3.0-0.5 Mg/3 Ml) 3 ml NEB Q2H PRN PRN Reason: Shortness of Breath Benzocaine/Menthol (Cepacol Sore Throat) 1 lozenge MUCMEM Q4HWA [facility] Last Admin: 02/27/19 06:05 Dose: 1 lozenge Duloxetine HCl (Cymbalta) 60 mg PO DAILY [facility] Last Admin: 02/27/19 08:33 Dose: 60 mg Enoxaparin Sodium (Lovenox) 40 mg SUBCUT DAILY [facility] Last Admin: 02/27/19 08:35 Dose: 40 mg Gabapentin (Neurontin) 100 mg PO BEDTIME [facility] Last Admin: 02/26/19 20:40 Dose: 100 mg Guaifenesin/Phenylephrine HCl (Robitussin Dm) 10 ml PO Q6H PRN PRN Reason: Cough Last Admin: 02/26/19 20:40 Dose: 10 ml Mometasone Furoate/Formoterol Fumar (Dulera 200-5 Mcg) 2 puff IH BIDRT [facility] Last Admin: 02/27/19 06:05 Dose: 2 puff Esomeprazole 20 Mg * (*Own Med) 0 each PO ACBRK [facility] Last Admin: 02/27/19 06:05 Dose: 1 each Prednisone (Prednisone) 50 mg PO DAILY@0800 [facility] Last Admin: 02/27/19 08:33 Dose: 50 mg Tiotropium [place] (Spiriva Handihaler) 18 mcg INH DAILY [facility] Last Admin: 02/27/19 08:38 Dose: 18 mcg Trazodone HCl (Trazodone) 50 mg PO BEDTIME PRN PRN Reason: Sleep Last Admin: 02/26/19 20:40 Dose: 50 mg Discontinued Medications Al Hydroxide/Mg Hydroxide (Mag-Al Plus) 30 ml PO ONETIME ONE Stop: 02/23/19 20:42 Last Admin: 02/23/19 21:15 Dose: 1 dose Albuterol (Proventil Neb Soln) 10 mg NEB ONETIME ONE Stop: 02/23/19 10:15 Last Admin: 02/23/19 16:36 Dose: 10 mg Albuterol/Ipratropium (Duoneb 3.0-0.5 Mg/3 Ml) 3 ml NEB ONETIME ONE Stop: 02/23/19 09:46 Last Admin: 02/23/19 09:48 Dose: 3 ml Budesonide (Pulmicort) 1 mg NEB ONETIME ONE Stop: 02/23/19 09:46 Last Admin: 02/23/19 09:48 Dose: 1 mg Ceftriaxone Sodium (Rocephin) Confirm Administered Dose 2 gm .ROUTE .STK-MED ONE Stop: 02/23/19 10:53 Last Admin: 02/23/19 11:07 Dose: Not Given Magnesium Sulfate/Dextrose 2 (gm/ Premix) 200 mls @ 100 mls/hr IV ONETIME ONE Stop: 02/23/19 11:51 Last Admin: 02/23/19 10:00 Dose: 100 mls/hr Azithromycin 500 mg/ Sodium (Chloride) 250 mls @ 250 mls/hr IV ONETIME ONE Stop: 02/23/19 11:45 Last Admin: 02/23/19 11:42 Dose: 250 mls/hr Ceftriaxone Sodium 2 gm/ (Sodium Chloride) 100 mls @ 200 mls/hr IV ONETIME ONE Stop: 02/23/19 11:15 Last Admin: 02/23/19 11:11 Dose: 200 mls/hr Lactated Ringer's (Ringers, Lactated) 1,000 mls @ 1,000 mls/hr IV .BOLUS ONE Stop: 02/23/19 11:57 Last Admin: 02/23/19 11:09 Dose: 1,000 mls/hr Lorazepam (Ativan) 0.5 mg PO ONETIME ONE Stop: 02/24/19 12:15 Last Admin: 02/24/19 13:20 Dose: 0.5 mg Lorazepam (Ativan) 0.5 mg PO ONETIME ONE Stop: 02/25/19 11:17 Last Admin: 02/25/19 12:22 Dose: 0.5 mg Methylprednisolone Sodium Succinate (Solu-Medrol) 125 mg IVPUSH ONETIME ONE Stop: 02/23/19 09:46 Last Admin: 02/23/19 09:47 Dose: 125 mg Montelukast Sodium (Singulair) 10 mg PO ONETIME ONE Stop: 02/23/19 10:48 Last Admin: 02/23/19 11:00 Dose: 10 mg Morphine Sulfate (Morphine) 2 mg IVPUSH ONETIME ONE Stop: 02/23/19 10:07 Last Admin: 02/23/19 10:24 Dose: 2 mg Morphine Sulfate (Morphine) 2 mg IVPUSH ONETIME ONE Stop: 02/23/19 12:00 Last Admin: 02/23/19 13:26 Dose: Not Given Morphine Sulfate (Morphine) 4 mg IVPUSH ONETIME ONE Stop: 02/23/19 12:05 Last Admin: 02/23/19 12:15 Dose: 4 mg Morphine Sulfate (Morphine) Confirm Administered Dose 4 mg .ROUTE .STK-MED ONE Stop: 02/23/19 12:06 Last Admin: 02/23/19 12:24 Dose: Not Given Duloxetine 60 Mg Cap (Pt's Own Med) 0 each PO DAILY [facility] Last Admin: 02/26/19 08:48 Dose: 1 each Sodium Chloride (Saline Flush) 10 ml FLUSH ASDIRECTED PRN PRN Reason: Keep Vein Open Last Admin: 02/23/19 09:42 Dose: 10 ml Sodium Chloride (Saline Flush) 10 ml FLUSH ASDIRECTED PRN PRN Reason: Keep Vein Open - Exam General: Reports: Alert, Oriented HEENT: Reports: Pupils Equal Neck: Reports: Supple Lungs: Reports: Clear to Auscultation, Normal Respiratory Effort Cardiovascular: Reports: Regular Rate, Regular Rhythm GI/Abdominal Exam: Normal Bowel Sounds, Soft, Non-Tender
== END 2019-02-27 12:30 | disposition home or self-care (01) | DRG 192 ==
LOC: DL.ED 09:40 → UNDOADMIN 13:19 → DL.MS 13:19 → INTOOBSV 15:55 → DL.MS 15:55 → OBSVTOIN 02-26 10:56
PROVIDERS: ADMIT Hospitalist; ATTEND Hospitalist
PROC: 5A09357 Assistance with Respiratory Ventilation, Less than 24 Consecutive Hours, Continuous Positive Airway Pressure (ICD-10-PCS; principal; 2019-02-26)
DX: J44.1 Chronic obstructive pulmonary disease with (acute) exacerbation (principal); F41.9 Anxiety disorder, unspecified; F32.9 Major depressive disorder, single episode, unspecified; H54.7 Unspecified visual loss; K21.9 Gastro-esophageal reflux disease without esophagitis; M19.90 Unspecified osteoarthritis, unspecified site; G89.29 Other chronic pain; Z87.891 Personal history of nicotine dependence; Z88.8 Allergy status to other drugs, medicaments and biological substances
CPT/HCPCS: 36415; 36600; 70490; 71045; 80048; 80053; 82803; 83605; 84145; 84484; 85025; 85027; 86140; 87040; 93005; 94010; 94640; 94660; 94667; 94760; 96361; 96365; 96367; 96372; 96375; 96376; 99285-25; A4217; A9270-GY; G0378; J0456; J0696; J1650; J2270; J2930; J3475; J7050; J7120; J7613-GY; J7620-GY

== ENCOUNTER 2022-01-01 09:18 | Emergency (ER) | payer OTHER ==
[2022-01-01] MEDS ORDERED: Albuterol/Ipratropium 3.0-0.5 MG/3 ML Neb Soln NEB ONE (09:20)
[2022-01-01] MEDS ORDERED: methylPREDNISolone Sodium Succinate 125 MG/2 ML SDV IVPUSH ONE (09:21)
[2022-01-01] MEDS ORDERED: Albuterol/Ipratropium 3.0-0.5 MG/3 ML Neb Soln ONE (09:22)
[2022-01-01 09:34] VITALS: BP 82/50; PULSE 97
[2022-01-01 10:03] LABS: ANION GAP 16.9 mEq/L (7-13); CHLORIDE,CL 106 mmol/L (98-107); SODIUM,NA 144 mmol/L (136-145)
== END 2022-01-01 11:09 | disposition home or self-care (01) ==
LOC: DL.ED 09:18
DX: J44.9 Chronic obstructive pulmonary disease, unspecified (principal); K21.9 Gastro-esophageal reflux disease without esophagitis; Z88.8 Allergy status to other drugs, medicaments and biological substances; Z87.891 Personal history of nicotine dependence
CPT/HCPCS: 36415; 71046; 80053; 83605; 84484; 85025; 85379; 93005; 94640; 96374; 99285; J2930; 93010; 99284; J7620-GY

== ENCOUNTER 2024-03-18 12:08 | Emergency (ER) | payer MEDICARE, OTHER ==
[2024-03-18 12:31] VITALS: BP 150/99; PULSE 115
[2024-03-18] MEDS: Acetaminophen 500 MG Tab PO ONE (12:32)
[2024-03-18] MEDS: Acetaminophen/HYDROcodone 325-5 MG Tab PO ONE (13:27)
== END 2024-03-18 13:17 | disposition home or self-care (01) ==
LOC: DL.ED 12:08
DX: S90.122A Contusion of left lesser toe(s) without damage to nail, initial encounter (principal); S90.32XA Contusion of left foot, initial encounter; Z88.6 Allergy status to analgesic agent; Z91.018 Allergy to other foods; X58.XXXA Exposure to other specified factors, initial encounter
CPT/HCPCS: 73620; 99283; A9270